=== PATIENT | female | born 1995 | race Asian ===

== ENCOUNTER 2020-01-01 22:14 | Emergency (ER) | payer BC ==
[~2020-01-01] VITALS: Ht 144.8 cm; Wt 63.0 kg
[2020-01-01] MEDS ORDERED: LORazepam 2 MG/ML, 1ML ONE (22:26)
[2020-01-01] MEDS ORDERED: SODIUM CHLORIDE 0.9% 1,000ML IVBOLUS ONE (22:30)
[2020-01-01] MEDS ORDERED: SODIUM CHLORIDE FLUSH 10ML SYR IVF ONE (22:30)
[2020-01-01] MEDS ORDERED: LORazepam 2 MG/ML, 1ML IVPush ONE (22:30)
[2020-01-01 22:54] LABS: BASOPHILS # (AUTO) 0.05 x10^3/uL (0-0.1); BASOPHILS % (AUTO) 0 % (0-1); EOSINOPHILS # (AUTO) 0.16 x10^3/uL (0-0.4); EOSINOPHILS % (AUTO) 1 % (1-7); LYMPHOCYTES # (AUTO) 3.35 x10^3/uL (1-3.4); LYMPHOCYTES % (AUTO) 27 % (22-44); MD NO; MEAN CORPUSCULAR HEMOGLOBIN 28.8 pg (27.0-34.8); MEAN CORPUSCULAR HGB CONC 32.1 g/dL (32.4-35.8); MEAN PLATELET VOLUME 7.7 fL (7.4-10.4); MONOCYTES # (AUTO) 0.53 x10^3/uL (0.2-0.8); MONOCYTES % (AUTO) 4 % (2-9); NEUTROPHILS # (AUTO) 8.25 x10^3/uL (1.8-6.8); NEUTROPHILS % (AUTO) 67 % (42-75); PLATELET COUNT 417 x10^3/uL (130-400); RED BLOOD COUNT 4.93 x10^6/uL (3.82-5.3); RED CELL DISTRIBUTION WIDTH 12.2 % (9.6-15.2)
[2020-01-01 23:04] LABS: ALBUMIN 3.4 g/dL (3.4-5.0); ANION GAP 11 mmol/L (5-15); CALCIUM 8.7 mg/dL (8.5-10.1); CHLORIDE 104 mmol/L (98-107)
[2020-01-01 23:15] LABS: ALANINE AMINOTRANSFERASE 24 U/L (12-78); ALKALINE PHOSPHATASE 62 U/L (45-117); BILIRUBIN,TOTAL 0.4 mg/dL (0.2-1.0); CREATININE 0.84 mg/dL (0.55-1.02); TOTAL PROTEIN 8.4 g/dL (6.4-8.2)
[2020-01-01 23:28] LABS: AMPHETAMINE SCREEN, URINE Negative (Negative); BARBITURATE SCREEN, URINE Negative (Negative); BENZODIAZEPINE SCREEN, URINE Negative (Negative); CANNABINOID SCREEN, URINE Positive (Negative); COCAINE SCREEN, URINE Negative (Negative); METHADONE SCREEN, URINE Negative (Negative); OPIATE SCREEN, URINE Negative (Negative)
[2020-01-01 23:46] VITALS: BP 101/43
--- NOTE | 2020-01-02 | NUR ---
PT FELT ANXIOUS AND HAD PALPATATIONS AFTER INGESTING A GUMMY CANDY PT FRIEND GAVE HER. PT SAID "SHE HAS NEVER TRIED IT BEFORE AND FELT FUNNY". PT WAS MEDICATED PER EMAR. PT STATED "SHE FELT BETTER AFTER MEDICATION "TRANSITIONS RN CARE COORDINATOR WILL CONTINUE TO MONITOR PT VSS.
== END 2020-01-02 00:36 | disposition home or self-care (01) ==
LOC: ED 22:44
DX: R00.2 Palpitations (principal); F12.10 Cannabis abuse, uncomplicated; R00.0 Tachycardia, unspecified
CPT/HCPCS: 36415; 80053; 80307; 84443; 85025; 93005; 96374; 99284; J2060; J7030

== ENCOUNTER 2020-07-30 18:58 | Emergency (ER) | payer BC ==
[~2020-07-30] VITALS: Ht 142.2 cm; Wt 65.6 kg
[2020-07-30] MEDS ORDERED: LIDOCAINE-MPF 1%, 5ML INFIL ONE (19:30)
--- NOTE | 2020-07-30 20:36 | NUR ---
PT GOING TO US
[2020-07-30 21:26] VITALS: BP 122/71
== END 2020-07-30 21:28 | disposition home or self-care (01) ==
LOC: ED 21:11
DX: D17.72 Benign lipomatous neoplasm of other genitourinary organ (principal)
CPT/HCPCS: 99284

== ENCOUNTER → 2020-08-31 | Outpatient (CLI) | payer BC ==
[~2020-08-31] MED LIST: ASCO500T8 PO
== END | disposition home or self-care (01) ==
LOC: STAR 14:57
PROVIDERS: ATTEND Surgery
DX: Z20.822 Contact with and (suspected) exposure to COVID-19 (principal); D48.60 Neoplasm of uncertain behavior of unspecified breast
CPT/HCPCS: U0003